=== PATIENT | male | born 1970 | race Two or more races ===

== ENCOUNTER 2024-12-01 10:26 | Emergency (ER) | payer OTHER, SELFPAY ==
[2024-12-01] VITALS (13 sets, daily range): BP systolic 129–184; BP diastolic 75–108; PULSE 53–80; RESP 15–18; TEMP 36.6–36.7; O2SAT 95–100; BMI 39.1
--- NOTE | 2024-12-01 10:43 | CA_ITS ---
FINAL REPORT CLINICAL HISTORY: Patient fell off a wagon 2 weeks ago, injuring right knee. Pain and edema since the trauma. FINDINGS: DUPLEX VENOUS SONOGRAPHY OF THE RIGHT LOWER EXTREMITY Multiple transverse and longitudinal scans were performed of the femoropopliteal deep venous system, with augmentation and compression maneuvers. Normal phasic flow was noted in the visualized deep venous system. No intraluminal increased echogenicity is noted to suggest thrombus. There is normal compression and augmentation of the venous structures. No abnormal venous collaterals are seen. There is a hypoechoic oval collection along the medial knee measuring at least 6.4 cm. Lacelike internal echoes are identified. There is no internal blood flow. Finding is most consistent with a hematoma. IMPRESSION: No evidence of deep venous thrombosis of the right lower extremity. Collection along the medial and the most consistent with a hematoma. Reviewed, Interpreted and Dictated by Belen Monteiro MD Transcribed by Violette Szymanski Authenticated and [facility]
--- NOTE | 2024-12-01 10:48 | CT_ITS ---
FINAL REPORT TECHNIQUE: Post contrast axial imaging of the aorta and bilateral lower extremity was obtained and reviewed.This study was performed with techniques to keep radiation doses as low as reasonably achievable (ALARA). Individualized dose reduction techniques using automated exposure control or adjustment of mA and/or kV according to the patient''s size were employed. CLINICAL HISTORY: with runoff. concern for RLE arterial injury FINDINGS: There is no evidence of aortic aneurysm or dissection. The mesenteric arteries are patent. No renal artery stenosis. The iliac arteries are unremarkable, without stenosis. The internal iliac arteries are patent. RIGHT: The right common femoral artery, deep femoral artery and superficial femoral artery are all patent, without stenosis. There is no stenosis of the popliteal artery. The anterior and posterior tibial and peroneal arteries are patent to the lower leg. The anterior and posterior tibial arteries are patent to the foot. There is no evidence of arterial injury of the right lower extremity. There is subcutaneous edema within the medial right lower extremity beginning at the distal thigh and extending through the calf. There is a fluid collection within the medial aspect of the right lower extremity at the level of the knee. This is superficial to the muscles. It measures 7.5 cm on axial images and extends approximately 14 cm in craniocaudad dimension. There is more diffuse soft tissue edema through the calf and foot. There is no subcutaneous air. Punctate radiodensities within the anterior soft tissues are favored to be soft tissue calcifications. LEFT: The left common femoral artery, deep femoral artery and superficial femoral artery are all patent, without stenosis. There is no stenosis of the popliteal artery. The anterior and posterior tibial and peroneal arteries are patent to the lower leg. The anterior and posterior tibial arteries are patent to the foot. Review of the remaining abdomen and pelvis demonstrates no evidence of mass or adenopathy. There is no fluid collection or acute inflammatory process. IMPRESSION: 1. No evidence of right lower extremity arterial injury or active hemorrhage. 2. Nonspecific subcutaneous edema within the right lower extremity beginning at the level of the distal thigh and continuing through the foot. Fluid collection along the medial subcutaneous tissues at the level of the knee could be a seroma or evolving hematoma. Abscess felt to be less likely but not excluded. 3. No evidence of abdominal aortic aneurysm and patent branch vessels in the abdomen and pelvis. Authenticated and [facility]
--- NOTE | 2024-12-01 10:48 | XR_ITS ---
FINAL REPORT CLINICAL HISTORY: Fall, right knee pain/swelling FINDINGS: RIGHT TIBIA FIBULA Two views were obtained. There is no fracture or dislocation. The joint spaces appear normal. Mild soft tissue edema is identified. There is linear density on the right side on all 3 films, likely artifact. IMPRESSION: Mild soft tissue edema. Reviewed, Interpreted and Dictated by Belen Monteiro MD Transcribed by Violette Szymanski Authenticated and [facility]
--- NOTE | 2024-12-01 10:48 | XR_ITS ---
FINAL REPORT CLINICAL HISTORY: Fall, right knee pain/swelling FINDINGS: RIGHT KNEE Two views were obtained. There is no fracture or dislocation. The joint spaces appear normal. No soft tissue abnormality is identified. IMPRESSION: No acute process. Reviewed, Interpreted and Dictated by Belen Monteiro MD Transcribed by Violette Szymanski Authenticated and [facility]
--- NOTE | 2024-12-01 10:48 | XR_ITS ---
FINAL REPORT CLINICAL HISTORY: Fall, right knee pain FINDINGS: RIGHT FEMUR Two views were obtained. There is no fracture or dislocation. The joint spaces appear normal. The hip and knee are intact. No soft tissue abnormality is identified. IMPRESSION: No acute process. Reviewed, Interpreted and Dictated by Belen Monteiro MD Transcribed by Violette Szymanski Authenticated and [facility]
--- NOTE | 2024-12-01 10:52 | HMH.EDGENADL ---
Discharge Plan Disposition Patient Disposition: Home, Self-Care Referrals Follow up/Referrals: Balwinder Greene, [Staff Physician, Orthopedics] - See instructions Provider,Referral, MD [Primary Care Provider, Medical] - See instructions Activity Restrictions/Add. Instructions Additional Instructions/Restrictions: You were found to have a collection of blood on the outside of your knee where your pain is. This is called a hematoma. I encourage you to keep the knee wrapped in an Robert bandage while up and moving. You can bear weight on the leg is much as you can tolerate. You can take Tylenol and ibuprofen to help with pain. Rest frequently and elevate the leg above the level of the heart when lying down. You can use heat on the area and alternate that with ice packs to help with inflammation. This will likely take 4 to 5 weeks to fully heal. I am giving you a referral to Dr. Greene with orthopedic surgery team. If at the end of the 5 weeks, you are still having pain and swelling and difficulty walking, I encourage you to call his office to schedule an appointment. If you develop any new or worsening symptoms, such as fever, worsening pain, inability to walk, or if you become concerned for your health for any reason, return to the emergency department for evaluation. Se le detect? angela acumulaci?n de cori en la parte exterior de la rodilla, donde le duele. [place] se llama hematoma. Le recomiendo que mantenga la rodilla envuelta en angela venda el?stica mientras est? de pie y en movimiento. Puede soportar peso sobre la pierna tanto kasi pueda. Puede jose Tylenol e ibuprofeno para aliviar el dolor. Descanse con frecuencia y eleve la pierna por encima del nivel del coraz?n cuando est? acostado. Puede aplicar calor en la carolyn y alternarlo con compresas de hielo para aliviar la inflamaci?n. Es probable que la recuperaci?n completa tarde de 4 a 5 semanas. Lo derivar? al Dr. Greene con el equipo de cirug?a ortop?dica. Si al final de las 5 semanas, a?n tiene dolor, hinchaz?n y dificultad para caminar, le recomiendo que llame a freitas consultorio para programar angela estelita. Si presenta alg?n s?ntoma nuevo o que empeora, kasi fiebre, empeoramiento del dolor, incapacidad para caminar, o si le preocupa freitas whitley por cualquier motivo, regrese al servicio de urgencias para angela evaluaci?n. Clinical Impressions Clinical Impression: Hematoma of left lower leg Print Language Print Language: Mongolian Discharge ED Provider: Bony Huber General Adult HPI General Chief complaint: PAIN Stated complaint: WC-10/23/24- poss blood clot-Left leg Time Seen by Provider: 12/01/24 10:34 History of Present Illness HPI narrative: Minesh Angulo is a 54y Mongolian-speaking male with no significant past medical history who presents to the emergency department for complaints of pain to his right lower extremity. A virtual sap security architect was used during the entire encounter. Patient states that 2 weeks ago, he fell off of a wagon while at work and landed with all of his weight on his right leg. Since then, he has had worsening pain and swelling to the medial aspect and posterior aspect of his right knee. He states that is difficult to bend the knee and painful with walking. He note significant swelling to the knee. Has not taken any medication for it. He was seen by his PCP here today who sent him to the emergency department for concern for DVT. Patient denies any numbness or tingling. Related Data Allergies Allergy/AdvReac Type Severity Reaction Status Date / Time No Known Drug Allergies Allergy Other Verified 12/01/24 11:00 [facility] Disclaimer: The information contained in this section may have been updated after the patient was seen, as this information can be updated by other users. Social History Smoking Status: Never smoker alcohol intake: never current occupational status: employed Travel in the last 8 weeks?: None ROS Obtained: Yes Systems reviewed as appropriate & no additional complaints except as documented Physical Exam General General appearance: alert and in no apparent distress Head Head exam: atraumatic Eye Eye exam: Present normal appearance ENT ENT exam: Present normal external ear exam Neck Neck exam: Present full ROM Chest Chest inspection: Present symmetric chest wall rise Respiratory Respiratory exam: Present normal lung sounds bilaterally; Absent respiratory distress, wheezes or stridor Cardiovascular Cardiovascular exam: Present regular rate and normal rhythm Abdominal Exam Abdominal exam: Present soft; Absent tenderness or guarding exam: Present deferred Extremities Exam Extremities exam: Present normal inspection Expanded Lower Extremity Exam Left: Leg image:  1. Swelling, ecchymosis, tenderness 2. Swelling, ecchymosis, tenderness 3. Ecchymosis Back Exam Back exam: Present normal inspection Neurological Exam Neurological exam: Present alert and oriented X3 Psychiatric Psychiatric exam: Present normal affect Skin Skin exam: Present warm and dry Other Other exam information: RLE: Significant swelling, ecchymosis and tenderness over the knee, mostly over the medial posterior aspect. There are significant amount of swelling. Cannot palpate popliteal pulses. There is dependent ecchymosis in the medial garcia. There is nonpitting edema throughout the left lower extremity extending from the knee distally. Sensation grossly intact throughout the entire left lower extremity. Cannot palpate DP or PT pulses. flexor and extensor strength is intact. Medical Decision Making Medical Records Screening: Per USPSTF and CDC recommendations, given the prevalence of disease in our region, it is our hospital?s policy to screen for HIV and viral Hepatitis for all patients aged 18 and over and those with ongoing risk factors. Mj Inquiry Pt receiving controlled substance: No Vital Signs: 12/01/24 10:32 12/01/24 10:37 12/01/24 10:48 Temperature 98 F Temperature Source Oral Pulse Rate 69 76 Pulse Rate [Right] 75 Respiratory Rate 18 Blood Pressure 184/98 H 163/108 H Blood Pressure [Right Arm] 184/98 H Blood Pressure Mean [Right Arm] 126 Blood Pressure Source Blood Pressure Source [Right Arm] Automatic Cuff Blood Pressure Position Blood Pressure Position [Right Arm] Supine 02 Sat by Pulse Oximetry 95 97 96 Oxygen Delivery Method Room Air 12/01/24 11:01 12/01/24 11:12 12/01/24 13:10 Temperature Temperature Source Pulse Rate 71 80 65 Pulse Rate [Right] Respiratory Rate 17 Blood Pressure 144/79 H 144/79 H 129/91 H Blood Pressure [Right Arm] Blood Pressure Mean [Right Arm] Blood Pressure Source Automatic Cuff Blood Pressure Source [Right Arm] Blood Pressure Position Supine Blood Pressure Position [Right Arm] 02 Sat by Pulse Oximetry 96 98 98 Oxygen Delivery Method Room Air 12/01/24 13:30 12/01/24 14:00 12/01/24 14:30 Temperature Temperature Source Pulse Rate 53 L 65 61 Pulse Rate [Right] Respiratory Rate Blood Pressure 135/75 138/80 137/91 H Blood Pressure [Right Arm] Blood Pressure Mean [Right Arm] Blood Pressure Source Blood Pressure Source [Right Arm] Blood Pressure Position Blood Pressure Position [Right Arm] 02 Sat by Pulse Oximetry 98 98 100 Oxygen Delivery Method 12/01/24 14:45 12/01/24 15:00 12/01/24 15:15 Temperature Temperature Source Pulse Rate 69 58 L 63 Pulse Rate [Right] Respiratory Rate Blood Pressure 131/86 Blood Pressure [Right Arm] Blood Pressure Mean [Right Arm] Blood Pressure Source Blood Pressure Source [Right Arm] Blood Pressure Position Blood Pressure Position [Right Arm] 02 Sat by Pulse Oximetry 97 98 98 Oxygen Delivery Method 12/01/24 15:17 Temperature 98.1 F Temperature Source Oral Pulse Rate 79 Pulse Rate [Right] Respiratory Rate 15 Blood Pressure 131/86 Blood Pressure [Right Arm] Blood Pressure Mean [Right Arm] Blood Pressure Source Automatic Cuff Blood Pressure Source [Right Arm] Blood Pressure Position Sitting Blood Pressure Position [Right Arm] 02 Sat by Pulse Oximetry Oxygen Delivery Method Room Air Lab Data Lab Results 12/01/24 10:56: WBC 8.3, RBC 4.84, Hgb 14.3, Hct 42.8, MCV 88.4, MCH 29.5, MCHC 33.4, RDW 13.4, Plt Count 195, MPV 10.4, Neut % (Auto) 57.5, Lymph % (Auto) 25.7, Meigs % (Auto) 10.7 H, Eos % (Auto) 5.1, Baso % (Auto) 0.6, Neut # (Auto) 4.8, Lymph # (Auto) 2.1, [place] # (Auto) 0.9, Eos # (Auto) 0.4, Baso # (Auto) 0.1, PT 10.7, INR 0.96, APTT 26.7, Sodium 136, Potassium 4.6, Chloride 102, Carbon Dioxide 27, Anion Gap 11.6, BUN 15, Creatinine 0.70, Estimated Creat Clear 175, Estimated GFR 118, Est GFR ( Amer) 143, Glucose 114 H, Calcium 9.2, Total Bilirubin 0.6, AST 68 H, ALT 113 H, Alkaline Phosphatase 127 H, Total Creatine Kinase 156, Total Protein 8.2, Albumin 4.6, Globulin 3.6 H, Albumin/Globulin Ratio 1.3 12/01/24 11:05: Lactate 1.1 12/01/24 10:56 12/01/24 10:56 Orders (Tests/Meds): ED MEDICATIONS Discontinued Medications Generic Name Dose Route Start Last Admin Trade Name Freq PRN Reason Stop Dose Admin Iopamidol 120 ml 12/01/24 11:57 12/01/24 11:58 Iopamidol-370 (76%);100ml Bottle IV 12/01/24 11:58 120 ml ONCE ONE Administration Ketorolac Tromethamine 15 mg 12/01/24 10:48 12/01/24 11:06 Ketorolac 15mg/Ml Vial IV 12/01/24 10:49 15 mg ONCE ONE Administration Sodium Chloride 100 ml 12/01/24 11:57 12/01/24 11:58 0.9 % Sodium Chloride 50 Ml Vial IV 12/01/24 11:58 100 ml ONCE ONE Administration Sodium Chloride 10 ml 12/01/24 11:57 12/01/24 11:58 Sodium Chloride 0.9% 10ml Syr (Rad Only) IV 12/01/24 11:58 10 ml ONCE ONE Administration ORDERS Category Date Time Status CT angio abdomen/femoral Stat Cat Scan 12/01/24 10:48 Completed Femur XR right 2 views [XR femur RT 2V] Stat Exams 12/01/24 10:48 Completed Fibula/tibia XR right 2 views [XR tibia fibula RT 2V] Exams 12/01/24 10:48 Completed Stat Knee XR right 2 views [XR knee RT 2V] Stat Exams 12/01/24 10:48 Completed CBC w/Auto Diff [Complete Blood Count Auto Diff] Stat Lab 12/01/24 10:56 Completed CK [Creatine Kinase] Stat Lab 12/01/24 10:56 Completed CMP [Comprehensive Metabolic Panel] Stat Lab 12/01/24 10:56 Completed Lactic Acid Stat Lab 12/01/24 11:05 Completed PT INR [Prothrombin Time INR] Stat Lab 12/01/24 10:56 Completed PTT [Activated Partial Thrombo Time] Stat Lab 12/01/24 10:56 Completed CA venous doppler LE RT Stat Y 12/01/24 10:43 Completed Medical Decision Narrative: Minesh Angulo is a 54y Mongolian-speaking male with no significant past medical history who presents to the emergency department for complaints of pain to his right lower extremity. A virtual sap security architect was used during the entire encounter. Patient states that 2 weeks ago, he fell off of a wagon while at work and landed with all of his weight on his right leg. Since then, he has had worsening pain and swelling to the medial aspect and posterior aspect of his right knee. He states that is difficult to bend the knee and painful with walking. He note significant swelling to the knee. Has not taken any medication for it. He was seen by his PCP here today who sent him to the emergency department for concern for DVT. Patient denies any numbness or tingling. On arrival, patient is hemodynamically stable, mildly hypertensive with blood pressure 144/79, heart rate within normal limits, afebrile. Fully on room air with appropriate oxygen saturation. Patient denies any chest pain or shortness of breath. Lower extremity exam, patient has significant swelling, ecchymosis and tenderness over the right knee, mostly over the medial posterior aspect of the knee. There is dependent edema in this extremity as well that is nonpitting extending from the knee to the into the foot. No popliteal, DP or PT pulses are able to be appreciated likely secondary to swelling. Patient sensation is grossly intact. Patient is less than 2-second capillary refill. Patient has a dependent ecchymosis on the medial aspect of the left garcia. He can range the knee with active range of motion to approximately 30 degrees before having significant pain. The joint itself does not appear warm to touch. Differential diagnosis includes, but is not limited to: Arterial injury, pseudoaneurysm, rhabdomyolysis, compartment syndrome, joint capsule injury, hemarthrosis, hematoma, DVT, fracture, among others. The most morbid conditions were considered and workup was based on these. Patient's workup in the emerged department included: X-rays of the right femur, knee, tib-fib, CT angiogram abdomen pelvis with runoff to evaluate for arterial injury. Patient was administered 15 mg of IV Toradol. Lab work consisted of CK, CMP, PT/INR, CBC with differential, PTT, lactic acid. Workup shows no leukocytosis, coagulation studies unremarkable, CMP unremarkable and non-actionable. Patient has mild elevations in AST and ALT as well as alk phos but bilirubin normal at 0.6. CK normal at 156. Lactate normal at 1.1. Lab work grossly unremarkable nonactionable. No evidence of rhabdomyolysis. X-ray imaging was interpreted by me personally. No acute fracture or dislocation. There is soft tissue edema. See interpretation above. DVT ultrasound demonstrated no DVT. They do report that there is a collection along the medial knee measuring approximately 6.4 cm most consistent with hematoma without internal flow. CTA abdomen pelvis with runoff shows no evidence of right lower extremity arterial injury or active hemorrhage. There is nonspecific subcutaneous edema within the right lower extremity beginning at the level of the distal thigh and continuing through the foot. Fluid collection along the medial subcutaneous tissue at the level of the knee could be a seroma or evolving hematoma. Abscess felt to be less likely but not excluded. No evidence of abdominal aortic aneurysm and patent branch vessels in the abdomen and pelvis. I was able to track patent PT and DP vessels to the right lower extremity. See radiology report for details. Given patient's significant hematoma and pain, I did discuss patient's case with Dr. Greene with orthopedic surgery and he recommended rest, warm compresses followed by ice as well as crutches. I did provide the patient with an Robert bandage to help keep compression on the area. I did instruct her that it would likely take several weeks for his symptoms to completely resolve. Will give consult for orthopedic surgery if symptoms do not resolve after approximately 5 weeks. Recommended Tylenol and ibuprofen to help manage pain. Return precautions were given. All questions were answered. He demonstrated understanding and was in agreement with this plan. He was then discharged from the emergency department in stable condition. All components of patient's care were performed using a virtual sap security architect. Critical Care Critical Care Time Critical Care Time: No
[2024-12-01 11:02] LABS: Hematocrit 42.8 % (42.0-52.0); Hemoglobin 14.3 g/dL (14.1-18.0); Immature Granulocytes % 0.4 %; Mean Corpuscular HGB Conc 33.4 g/dL (31.8-35.4); Mean Corpuscular Hemoglobin 29.5 pg (27.0-31.2); Mean Corpuscular Volume 88.4 fl (80-94); Nucleated Red Blood Cells % 0 %; Platelet Count 195 K/mm3 (142-424); Red Blood Count 4.84 M/mm3 (4.60-6.20); Red Cell Distribution Width-SD 43.5 fL; White Blood Count 8.3 K/mm3 (4.8-10.8)
[2024-12-01] MEDS: KETOROLAC 15MG/ML VIAL 15 MG IV (11:06)
[2024-12-01 11:15] LABS: Activated Partial Thrombo Time 26.7 seconds (22.8-30.6); INR 0.96 (0.9-1.1); Prothrombin Time 10.7 seconds (10.1-12.5)
[2024-12-01 11:16] LABS: Alanine Aminotransferase 113 U/L (12-78); Albumin Level 4.6 g/dl (3.5-5.0); Albumin/Globulin Ratio 1.3 (1.1-1.8); Alkaline Phosphatase 127 U/L (38-126); Anion Gap 11.6 mEq/L (5-15); Aspartate Amino Transferase 68 U/L (17-59); Bilirubin,Total 0.6 mg/dl (0.2-1.3); Blood Urea Nitrogen 15 mg/dl (9-20); Calcium 9.2 mg/dl (8.4-10.2); Carbon Dioxide 27 mmol/L (22.0-30.0); Chloride 102 mmol/L (98-107); Creatine Kinase 156 U/L (55-170); Creatinine Clearance Estimated 175 mL/min (50-200); Creatinine,Serum 0.70 mg/dl (0.66-1.25); Estimated Glomerular Filt Rate 118 ml/min (>60); GFR (African American) 143 ML/MIN (>60); Globulin 3.6 g/dL (1.3-3.2); Glucose 114 mg/dl (74-100); Potassium 4.6 mmoL/L (3.5-5.1); Sodium 136 mmol/L (136-145); Total Protein,Serum 8.2 g/dl (6.3-8.2)
[2024-12-01] MEDS: SODIUM CHLORIDE 0.9% 10ML SYR (RAD ONLY) 10 ML IV (11:58)
[2024-12-01] MEDS: IOPAMIDOL-370 (76%);100ML BOTTLE 120 ML IV (11:58)
[2024-12-01] MEDS: 0.9 % SODIUM CHLORIDE 50 ML VIAL 100 ML IV (11:58)
--- NOTE | 2024-12-01 11:58 | PC.NURSE ---
Echo at pts bedside.
--- NOTE | 2024-12-01 12:19 | PC.NURSE ---
Zaida from echo notified nurse that she didn't find anything visible as a blood clot while performing the echo. Notified Dr. Huber.
--- NOTE | 2024-12-01 13:19 | PC.NURSE ---
I called to inquire about the pts radiology reports and spoke with Zabrina. She is going to send the prelims for XR's and reach out to the radiologist about the CTA
== END 2024-12-01 15:31 | disposition home or self-care (01) ==
PROVIDERS: Emergency Provider Student in an Organized Health Care Education/Training Program
DX: S80.12XA Contusion of left lower leg, initial encounter (principal)
CPT/HCPCS: 73552; 73560; 73590; 75635; 80053; 82550; 83605; 85025; 85610; 85730; 93971; 96374; 99284; 99285; J1885; Q9967